=== PATIENT | female | born 1950 | race Caucasian/White ===

== ENCOUNTER 2018-03-07 13:08 | Outpatient (CLI) | payer MEDICARE, BC | END 2018-03-07 13:09 | disposition home or self-care (01) | LOC: BICMAMMO 13:08 | PROVIDERS: ATTEND Family Medicine | DX: Z12.31 Encounter for screening mammogram for malignant neoplasm of breast (principal); R92.1 Mammographic calcification found on diagnostic imaging of breast | CPT/HCPCS: 77063; 77067 ==

== ENCOUNTER 2024-10-02 13:27 | Outpatient (CLI) | payer OTHER | END 2024-10-02 13:28 | disposition home or self-care (01) | LOC: BICRAD 13:27 | PROVIDERS: ATTEND Family Medicine | DX: M54.50 Low back pain, unspecified (principal); M47.816 Spondylosis without myelopathy or radiculopathy, lumbar region | CPT/HCPCS: 72100 ==